=== PATIENT | male | born 1955 | race Caucasian/White ===

== ENCOUNTER → 2018-04-27 | Outpatient (CLI) | payer OTHER ==
[~2018-04-27] MED LIST: ADULT LOW DOSE81 MG PO; AZOR 5-40 MG T1 EACH PO; FISH OIL 1,0001 EAC5 PO; MULTIVITAMIN; PERCOCET; PRILOSEC 20 MG20 MG PO; VITAMIN D1000 UNI1 PO
== END ==
LOC: RAD 16:57
DX: M51.37 Other intervertebral disc degeneration, lumbosacral region (principal)

== ENCOUNTER → 2020-12-18 | Outpatient (CLI) | payer OTHER ==
[2020-12-18 15:13] LABS: CREATININE 1.4 mg/dL (0.7-1.3)
== END ==
LOC: LAB 14:00 → CAT 14:00
PROVIDERS: ATTEND Nurse Practitioner
DX: K40.20 Bilateral inguinal hernia, without obstruction or gangrene, not specified as recurrent (principal); K57.30 Diverticulosis of large intestine without perforation or abscess without bleeding; N28.1 Cyst of kidney, acquired; N40.0 Benign prostatic hyperplasia without lower urinary tract symptoms; N20.0 Calculus of kidney; R31.9 Hematuria, unspecified

== ENCOUNTER → 2021-03-14 | Outpatient (CLI) | payer OTHER | LOC: CAT 16:06 | PROVIDERS: ATTEND Internal Medicine Cardiovascular Disease | DX: Z13.6 Encounter for screening for cardiovascular disorders (principal); I25.10 Atherosclerotic heart disease of native coronary artery without angina pectoris; E78.00 Pure hypercholesterolemia, unspecified ==

== ENCOUNTER → 2021-05-24 | Outpatient (CLI) | payer OTHER | LOC: SJCVCIMAG 08:29 | PROVIDERS: ATTEND Internal Medicine Cardiovascular Disease | DX: I08.3 Combined rheumatic disorders of mitral, aortic and tricuspid valves (principal); I48.91 Unspecified atrial fibrillation ==